=== PATIENT | female | born 1995 | race Caucasian/White ===

== ENCOUNTER 2017-08-28 08:59 | Emergency (ER) | payer OTHER ==
[~2017-08-28] VITALS: Ht 157.5 cm; Wt 56.7 kg
[~2017-08-28 08:59] MED LIST: AZIT250 PO; AZIT500 PO; Bactrim Ds Tab1 EACH PO; Benadryl 50 mg50 MG PO; CIPR500 PO; DOXY100 PO; HYDACE5325 PO; IBUP800 PO; Keflex500 MG PO; METR500 PO; NAPR500 PO; Norco 5-325 Ta1 EACH PO; OXYACE5T PO; PRED20 PO; Ultram50 MG PO; Verotin-Gr Cap1 EACH PO; Zithromax250 MG PO; Zofran Odt4 MG SL; Zofran4 MG PO
[2017-08-28] MEDS ORDERED: Veetids 500500 MG PO (10:02)
[2018-05-08] MEDS ORDERED: PENVK500 PO (18:52)
== END 2017-08-28 10:05 | disposition home or self-care (01) ==
LOC: ER 08:59
DX: K04.7 Periapical abscess without sinus (principal); K02.9 Dental caries, unspecified; Z79.2 Long term (current) use of antibiotics; F17.290 Nicotine dependence, other tobacco product, uncomplicated
CPT/HCPCS: 99282

== ENCOUNTER 2017-09-21 21:16 | Emergency (ER) | payer OTHER ==
[~2017-09-21] VITALS: Ht 154.9 cm; Wt 59.0 kg
[~2017-09-21 21:16] MED LIST changes: +Veetids 500500 MG PO
[2017-09-21] MEDS ORDERED: Veetids 500500 MG PO (22:05)
[2018-05-08] MEDS ORDERED: PENVK500 PO (18:52)
== END 2017-09-21 22:22 | disposition home or self-care (01) ==
LOC: ER 21:16
DX: K02.9 Dental caries, unspecified (principal); Z79.2 Long term (current) use of antibiotics; F17.290 Nicotine dependence, other tobacco product, uncomplicated
CPT/HCPCS: 96372; 99283; J1885

== ENCOUNTER 2018-10-31 15:33 | Emergency (ER) | payer SELFPAY ==
[~2018-10-31 15:33] MED LIST changes: +PENVK500 PO
== END 2018-10-31 18:23 | disposition left against medical advice (07) ==
LOC: ER 15:33
DX: Z53.21 Procedure and treatment not carried out due to patient leaving prior to being seen by health care provider (principal)

== ENCOUNTER 2018-11-10 10:04 | Inpatient (IN) | payer OTHER ==
[~2018-11-10] VITALS: Ht 165.1 cm; Wt 0.4 kg
[2018-11-10 11:44] LABS: Source, Urine Clean Catch
[2018-11-10 11:58] LABS: Bilirubin, Urine Neg (Neg); Blood, Urine Neg (Neg); Glucose Qualitative, Urine Neg (Neg); Ketones, Urine 2+ (Neg); Leukocyte Esterase, Urine 2+ (Neg); Nitrite, Urine Neg (Neg); Protein, Urine 1+ (Neg); Urobilinogen, Urine NORM (Normal)
[2018-11-10 12:03] LABS: Color, Urine Yellow (P-Yellow)
[2018-11-10 12:04] LABS: Appearance, Urine Clear (Clear)
[2018-11-10 12:07] LABS: Bacteria Few /hpf; Mucus Mod (0-Heavy); Red Blood Cells, Urine Rare /hpf (0-2); Squamous Epithelial Cells Mod /hpf (Few)
[2018-11-10 13:10] LABS: BASOPHILS ABSOLUTE AUTO 0.03 K/mm3 (0.00-0.23); BASOPHILS PERCENT AUTO 0 % (0-2); EOSINOPHILS ABSOLUTE AUTO 0.01 K/mm3 (0.00-0.68); EOSINOPHILS PERCENT AUTO 0 % (0-6); Hematocrit 32.6 % (33.0-51.0); Hemoglobin 10.5 g/dL (11.5-16.0); IMMATURE GRAN ABSOLUTE AUTO 0.04 K/mm3 (0.00-0.10); IMMATURE GRAN PERCENT AUTO 0 % (0-1); LYMPHOCYTES ABSOLUTE AUTO 2.41 K/mm3 (0.84-5.20); LYMPHOCYTES PERCENT AUTO 27 % (21-46); MONOCYTES ABSOLUTE AUTO 0.51 K/mm3 (0.16-1.47); MONOCYTES PERCENT AUTO 6 % (4-13); Mean Corpuscular HGB 26.1 pg (26.0-34.0); Mean Corpuscular HGB Conc 32.2 g/dL (31.5-36.5); Mean Corpuscular Volume 81 fL (80-100); Mean Platelet Volume 11.8 fL (9.1-12.4); NEUTROPHILS PERCENT AUTO 67 % (41-73); Platelet Count 230 K/mm3 (150-400); RDW Coefficient Variation 13.2 % (11.7-14.2); RDW Standard Deviation 38.7 fL (35.1-46.3); Red Blood Cell Count 4.02 M/mm3 (3.80-5.20)
[2018-11-10 17:07] LABS: U Amphetamine Screen DETECTED; U Barbituate Screen Not Detected; U Benzodiazapine Screen Not Detected; U Buprenorphine Screen Not Detected; U Cannabinoids Screen Not Detected; U Cocaine Screen Not Detected; U Methadone Screen Not Detected; U Methamphetamine Screen DETECTED; U Opiates Screen DETECTED; U Oxycodone Screen Not Detected; U Phencyclidine Screen Not Detected; U Propoxyphene Screen Not Detected
[2018-11-10] MEDS ORDERED: PRENATAL TABLE1 EAC2 PO (17:47)
--- NOTE | 2018-11-11 04:25 | NUR ---
NB TAKEN TO NURSERY WITH ARCHANA Gillis RN, TRUDY Mortensen, RN AND SAMUEL Sagastume RN AND RT JANKI TO STAIBILIZE NB. LICENSED MASS REAL ESTATE APPRAISER CALLED AND NOTIFIED OF NB'S AND STATUS
--- NOTE | 2018-11-11 04:29 | NUR ---
AFTER DELIVERY NB TAKEN TO NURSERY FOR SIGNS OF RESPIRATORY DISTRESS. MOTHER TOLD THAT NB WILL HAVE TO GO TO NURSERY AND BE ON CPAP TO ASSIST NB IN BREATHING. MOTHER OKAY WITH NB GOING. AFTER [facility] STAFF LEFT WITH , PT C/O ABD PAIN AND CRAMPING. TORADOL GIVEN TO PT. PT ALSO GIVEN SNACKS AND DRINKS. PT ATE CHIPS AND THEN ROLLED OVER IN BED AND FELL ASLEEP. PT AROUSABLE BY VOICE/TOUCH. PT TOLD THAT SHE WILL BE ABLE TO VISIT NB AFTER SHE IS UP/SHOWERED. PT NODDED THEN FELL BACK ASLEEP.
[2018-11-11 13:03] LABS: BASOPHILS ABSOLUTE AUTO 0.02 K/mm3 (0.00-0.23); BASOPHILS PERCENT AUTO 0 % (0-2); EOSINOPHILS ABSOLUTE AUTO 0.02 K/mm3 (0.00-0.68); EOSINOPHILS PERCENT AUTO 0 % (0-6); Hematocrit 27.9 % (33.0-51.0); Hemoglobin 8.9 g/dL (11.5-16.0); IMMATURE GRAN ABSOLUTE AUTO 0.04 K/mm3 (0.00-0.10); IMMATURE GRAN PERCENT AUTO 0 % (0-1); LYMPHOCYTES ABSOLUTE AUTO 2.49 K/mm3 (0.84-5.20); LYMPHOCYTES PERCENT AUTO 25 % (21-46); MONOCYTES PERCENT AUTO 5 % (4-13); Mean Corpuscular HGB 26.1 pg (26.0-34.0); Mean Corpuscular HGB Conc 31.9 g/dL (31.5-36.5); Mean Corpuscular Volume 82 fL (80-100); Mean Platelet Volume 11.6 fL (9.1-12.4); NEUTROPHILS ABSOLUTE AUTO 6.94 K/mm3 (1.96-9.15); NEUTROPHILS PERCENT AUTO 69 % (41-73); Platelet Count 207 K/mm3 (150-400); RDW Coefficient Variation 13.2 % (11.7-14.2); RDW Standard Deviation 39.4 fL (35.1-46.3); Red Blood Cell Count 3.41 M/mm3 (3.80-5.20); White Blood Cell Count 10.01 K/mm3 (4.00-11.30)
[2018-11-11 13:24] LABS: Alanine Aminotransfer (ALT/SGP 32 U/L (12-78); Albumin, Blood 1.5 g/dL (3.4-5.0); Albumin/Globulin Ratio 0.4 (0.8-1.8); Alk Phos 201 U/L (50-136); Anion Gap 7 mmol/L (6-16); Aspartate Aminotrans (AST/SGOT 31 U/L (12-37); Bilirubin, Total 0.2 mg/dL (0.1-1.0); Blood Urea Nitrogen 5 mg/dL (8-24); Bun/Creatinine Ratio 9.6 (12.0-20.0); CO2, Blood 22 mmol/L (21-32); Calcium, Blood 7.6 mg/dL (8.5-10.1); Chloride, Blood 111 mmol/L (98-108); Creatinine, Blood 0.52 mg/dL (0.40-1.00); Globulin, Blood 3.8 g/dL (2.2-4.0); Glomerular Filtration Rate >60 (60-); Glucose, Blood 79 mg/dL (70-99); Potassium, Blood 4.3 mmol/L (3.5-5.5); Sodium, Blood 140 mmol/L (136-145); Total Protein, Blood 5.3 g/dL (6.4-8.2)
--- NOTE | 2018-11-12 08:15 | NUR ---
PT IN BED, VOIDED IN SPECIMEN CUP BUT NO RN IN ROOM AT TIME. PT EDUCATED THAT RN MUST BE PRESENT. PT ASKS WHEN SHE GETS TO LEAVE, DESIRES TO DISCHARGE TO HOME SOON. PT EDUCATED ABOUT SUBOXONE AND HOW SHE WILL NEED TO DO DRUG UA FIRST AND WILL NEED A RX FOR IT. PT SEEMS WITHDRAWN. GOES OUTSIDE AFTER ASSESSMENT.
--- NOTE | 2018-11-12 08:36 | NUR ---
TO KENZIE, HOLDING
[2018-11-12 09:46] LABS: U Amphetamine Screen DETECTED; U Barbituate Screen Not Detected; U Benzodiazapine Screen Not Detected; U Cannabinoids Screen Not Detected; U Cocaine Screen Not Detected; U Methadone Screen Not Detected; U Methamphetamine Screen DETECTED; U Opiates Screen DETECTED; U Phencyclidine Screen Not Detected
[2018-11-12 09:47] LABS: U Buprenorphine Screen DETECTED; U Oxycodone Screen Not Detected; U Propoxyphene Screen Not Detected
--- NOTE | 2018-11-12 10:50 | NUR ---
PT CALLED RN INTO ROOM, STATES I WANT TO LEAVE NOW, WHAT DO I NEED TO SIGN? PT ENCOURAGED TO STAY UNTIL PROVIDER COMES TO ASSESS AND GIVE DISCHARGE ORDERS. PT STATES SHE DOES NOT WANT THIS AND IS GOING TO LEAVE. PT EDUCATED ABOUT DISCHARGE INSTRUCTIONS AND PAPER COPY GIVEN
--- NOTE | 2018-11-12 11:05 | NUR ---
AMA FORM SIGNED. PT STATES SHE UNDERSTANDS WHAT SHE IS SIGNING AND WHAT IT MEANS.
--- NOTE | 2018-11-12 11:10 | NUR ---
PT DISCHARGED AMA
--- NOTE | 2018-11-12 11:15 | NUR ---
LEFT AMA, RN EDUCATED PT MUCH THE PT WOULD ALLOW.
--- NOTE | 2018-11-12 11:16 | NUR ---
NO POST APPOINTMENT MADE, PT WOULD NOT BOOK BEFORE LEAVING AMA. HARSHAL NOT ABLE TO GET DONE WELL.
== END 2018-11-12 11:07 | disposition left against medical advice (07) | DRG 806 ==
LOC: OBS 10:04 → BC 10:04 → OBS 16:28 → BC 16:41
PROVIDERS: ADMIT Nurse Practitioner Obstetrics & Gynecology
PROC: 10E0XZZ Delivery of Products of Conception, External Approach (ICD-10-PCS; principal; 2018-11-11)
PROC: 6A550ZT Pheresis of Cord Blood Stem Cells, Single (ICD-10-PCS; 2018-11-11)
PROC: 00HU33Z Insertion of Infusion Device into Spinal Canal, Percutaneous Approach (ICD-10-PCS; 2018-11-11)
PROC: 3E0R3BZ Introduction of Anesthetic Agent into Spinal Canal, Percutaneous Approach (ICD-10-PCS; 2018-11-11)
DX: O60.14X0 Preterm labor third trimester with preterm delivery third trimester, not applicable or unspecified (principal); O99.324 Drug use complicating childbirth; Z37.0 Single live birth; O99.013 Anemia complicating pregnancy, third trimester; O99.343 Other mental disorders complicating pregnancy, third trimester; F43.10 Post-traumatic stress disorder, unspecified; F41.1 Generalized anxiety disorder; O99.333 Smoking (tobacco) complicating pregnancy, third trimester; Z3A.35 35 weeks gestation of pregnancy
CPT/HCPCS: 36415; 51702; 59025; 80053; 81001; 85025; 87081; 87086; 87653; 96372; 99215; C1751; C9113; J0290; J1885; J2210; J2590; J3105; J7120

== ENCOUNTER 2022-01-22 01:44 | Emergency (ER) | payer SELFPAY ==
[~2022-01-22] VITALS: Ht 157.5 cm; Wt 54.4 kg
[~2022-01-22 01:44] MED LIST changes: +PRENATAL TABLE1 EAC2 PO
[2022-01-22] MEDS ORDERED: DOXY100 PO (04:51)
[2022-01-22] MEDS ORDERED: METR500 PO (04:52)
[2022-01-24 02:08] LABS: CHLAMYDIA TRACHOMATIS, NAA Negative (Negative)
== END 2022-01-22 05:32 | disposition home or self-care (01) ==
LOC: ER 01:44
PROVIDERS: Student in an Organized Health Care Education/Training Program
DX: Z20.2 Contact with and (suspected) exposure to infections with a predominantly sexual mode of transmission (principal); Z79.899 Other long term (current) drug therapy; F17.210 Nicotine dependence, cigarettes, uncomplicated
CPT/HCPCS: 81025; 86592; 96372; 99283-25; A9270; J0696

== ENCOUNTER 2023-01-02 13:11 | Emergency (ER) | payer OTHER ==
[~2023-01-02] VITALS: Ht 157.5 cm; Wt 56.7 kg
[2023-01-02 13:17] VITALS: BP 129/73
[2023-01-02] MEDS ORDERED: SULTRIDS PO (14:26)
[2023-01-02] MEDS ORDERED: CEPH500 PO (14:26)
== END 2023-01-02 15:01 | disposition home or self-care (01) ==
LOC: ER 13:11
DX: L03.116 Cellulitis of left lower limb (principal); F17.210 Nicotine dependence, cigarettes, uncomplicated
CPT/HCPCS: 87070; 87075; 87077; 87147; 87186; 87205; 99283

== ENCOUNTER 2023-01-31 01:00 | Emergency (ER) | payer OTHER ==
[~2023-01-31] VITALS: Ht 157.5 cm; Wt 59.0 kg
[~2023-01-31 01:00] MED LIST changes: +CEPH500 PO; +SULTRIDS PO
[2023-01-31 01:22] VITALS: BP 127/74
[2023-01-31 01:31] LABS: Source, Urine Clean Catch
[2023-01-31 01:38] LABS: Bilirubin, Urine Neg (Neg); Blood, Urine Neg (Neg); Glucose Qualitative, Urine Neg (Neg); Ketones, Urine 1+ (Neg); Leukocyte Esterase, Urine 1+ (Neg); Nitrite, Urine Pos (Neg); Protein, Urine 1+ (Neg); Urobilinogen, Urine 1+ (Normal)
[2023-01-31 01:42] LABS: Appearance, Urine Hazy (Clear); Color, Urine Yellow (P-Yellow)
[2023-01-31 01:45] LABS: Amorphous Light (0-Heavy); Bacteria Mod /hpf; Mucus Mod (0-Heavy); Red Blood Cells, Urine Not Seen /hpf (0-2); Squamous Epithelial Cells Few /hpf (Few)
[2023-01-31 02:38] LABS: BASOPHILS ABSOLUTE AUTO 0.05 K/mm3 (0.00-0.23); BASOPHILS PERCENT AUTO 1 % (0-2); EOSINOPHILS ABSOLUTE AUTO 0.19 K/mm3 (0.00-0.68); EOSINOPHILS PERCENT AUTO 4 % (0-6); Hematocrit 37.5 % (33.0-51.0); Hemoglobin 12.4 g/dL (11.5-16.0); IMMATURE GRAN ABSOLUTE AUTO 0.02 K/mm3 (0.00-0.10); IMMATURE GRAN PERCENT AUTO 0 % (0-1); LYMPHOCYTES ABSOLUTE AUTO 2.14 K/mm3 (0.84-5.20); LYMPHOCYTES PERCENT AUTO 44 % (21-46); MONOCYTES ABSOLUTE AUTO 0.39 K/mm3 (0.16-1.47); MONOCYTES PERCENT AUTO 8 % (4-13); Mean Corpuscular HGB 27.6 pg (26.0-34.0); Mean Corpuscular HGB Conc 33.1 g/dL (31.5-36.5); Mean Corpuscular Volume 84 fL (80-100); NEUTROPHILS ABSOLUTE AUTO 2.06 K/mm3 (1.96-9.15); NEUTROPHILS PERCENT AUTO 43 % (41-73); RDW Coefficient Variation 12.8 % (11.7-14.2); RDW Standard Deviation 38.6 fL (35.1-46.3); Red Blood Cell Count 4.49 M/mm3 (3.80-5.20); White Blood Cell Count 4.85 K/mm3 (4.00-11.30)
[2023-01-31 02:48] LABS: Bilirubin, Total 0.2 mg/dL (0.1-1.0); Bun/Creatinine Ratio 12.9 (12.0-20.0); Calcium, Blood 8.9 mg/dL (8.5-10.1); Creatinine, Blood 0.77 mg/dL (0.40-1.00); Globulin, Blood 4.1 g/dL (2.2-4.0); Potassium, Blood 4.1 mmol/L (3.5-5.5)
[2023-01-31 03:16] LABS: Albumin, Blood 3.9 g/dL (3.4-5.0)
== END 2023-01-31 03:05 | disposition left against medical advice (07) ==
LOC: ER 01:00
PROVIDERS: Emergency Medicine
DX: N39.0 Urinary tract infection, site not specified (principal); F17.210 Nicotine dependence, cigarettes, uncomplicated
CPT/HCPCS: 80053; 81001; 81025; 85025; J0696; J1885; J2405; J7030

== ENCOUNTER 2023-01-31 15:23 | Emergency (ER) | payer OTHER ==
[~2023-01-31] VITALS: Ht 157.5 cm; Wt 59.0 kg
[2023-01-31 16:01] VITALS: BP 138/94
== END 2023-01-31 17:27 | disposition left against medical advice (07) ==
LOC: ER 15:23
DX: N39.0 Urinary tract infection, site not specified (principal); F15.90 Other stimulant use, unspecified, uncomplicated; F17.210 Nicotine dependence, cigarettes, uncomplicated; Z53.21 Procedure and treatment not carried out due to patient leaving prior to being seen by health care provider
CPT/HCPCS: 99284; J0696

== ENCOUNTER → 2024-08-07 | Outpatient (CLI) | payer OTHER | LOC: LAB SHORT 17:42 → LAB 17:42 | DX: R82.998 Other abnormal findings in urine (principal) | CPT/HCPCS: 87077; 87086; 87186 ==

== ENCOUNTER 2024-08-08 10:58 | Inpatient (IN) | payer OTHER ==
[~2024-08-08] VITALS: Ht 157.5 cm; Wt 66.0 kg
[2024-08-08 11:59] LABS: Source, Urine Clean Catch
[2024-08-08 12:26] LABS: Appearance, Urine Hazy (Clear); Bilirubin, Urine Neg (Neg); Blood, Urine 1+ (Neg); Color, Urine Yellow (P-Yellow); Glucose Qualitative, Urine Neg (Neg); Ketones, Urine Neg (Neg); Leukocyte Esterase, Urine 3+ (Neg); Nitrite, Urine Pos (Neg); Protein, Urine 2+ (Neg); Specific Gravity, Urine 1.015 (1.003-1.022); Urobilinogen, Urine 2+ (Normal)
[2024-08-08 12:50] LABS: BASOPHILS ABSOLUTE AUTO 0.05 K/mm3 (0.00-0.23); BASOPHILS PERCENT AUTO 0 % (0-2); Hematocrit 31.3 % (33.0-51.0); Hemoglobin 10.7 g/dL (11.5-16.0); LYMPHOCYTES ABSOLUTE AUTO 1.18 K/mm3 (0.84-5.20); LYMPHOCYTES PERCENT AUTO 9 % (21-46); MONOCYTES ABSOLUTE AUTO 1.11 K/mm3 (0.16-1.47); MONOCYTES PERCENT AUTO 8 % (4-13); Mean Corpuscular HGB 28.1 pg (26.0-34.0); Mean Corpuscular HGB Conc 34.2 g/dL (31.5-36.5); Mean Corpuscular Volume 82 fL (80-100); Mean Platelet Volume 10.6 fL (9.1-12.4); Platelet Count 158 K/mm3 (150-400); RDW Coefficient Variation 12.6 % (11.7-14.2); RDW Standard Deviation 38.2 fL (35.1-46.3); Red Blood Cell Count 3.81 M/mm3 (3.80-5.20); White Blood Cell Count 13.42 K/mm3 (4.00-11.30)
[2024-08-08 12:51] LABS: EOSINOPHILS ABSOLUTE AUTO 0.06 K/mm3 (0.00-0.68); EOSINOPHILS PERCENT AUTO 0 % (0-6); IMMATURE GRAN ABSOLUTE AUTO 0.12 K/mm3 (0.00-0.10); IMMATURE GRAN PERCENT AUTO 1 % (0-1); NEUTROPHILS PERCENT AUTO 81 % (41-73)
[2024-08-08 13:04] LABS: Bacteria Mod /hpf; Squamous Epithelial Cells Many /hpf (Few); White Blood Cells, Urine TNTC /hpf (0-5)
[2024-08-08 13:16] LABS: Albumin, Blood 2.7 g/dL (3.4-5.0); Albumin/Globulin Ratio 0.6 (0.8-1.8); Bilirubin, Total 0.4 mg/dL (0.1-1.0); Bun/Creatinine Ratio 16.7 (12.0-20.0); Calcium, Blood 9.1 mg/dL (8.5-10.1); Creatinine, Blood 1.44 mg/dL (0.40-1.00); Globulin, Blood 4.4 g/dL (2.2-4.0); Potassium, Blood 2.8 mmol/L (3.5-5.5); Total Protein, Blood 7.1 g/dL (6.4-8.2)
[2024-08-08] MEDS ORDERED: NS 1,000 ML IV SCH ×2 (14:30→18:25)
[2024-08-08] MEDS ORDERED: CefTRIAXone Sodium 1,000 MG in NS 100 ML IV ONE (14:30)
[2024-08-08] MEDS ORDERED: Acetaminophen 325 MG TABLET PO ONE (14:35)
[2024-08-08] MEDS ORDERED: Ondansetron HCl 2 MG / ML 2ML Vial IV ONE (14:35)
[2024-08-08] MEDS ORDERED: OxyCODONE HCL 5 MG TAB PO ONE (14:35)
[2024-08-08] MEDS ORDERED: Potassium Chloride 20 MEQ/15 ML UDC PO ONE (14:45)
[2024-08-08] MEDS ORDERED: Ondansetron HCl 2 MG / ML 2ML Vial IV PRN (18:25)
[2024-08-08] MEDS ORDERED: FLU VACC TS2024-25(6MOS UP)/PF 45 MCG/0.5 ML SYRINGE IM SCH (18:25)
[2024-08-08] MEDS ORDERED: Vancomycin HCL 1,500 MG in NS 250 ML IV ONE (18:55)
[2024-08-08] MEDS ORDERED: HYDROcodone 10-APAP 325 TAB PO PRN (19:00)
[2024-08-08 19:37] LABS: Source, Urine Clean Catch
[2024-08-08 19:40] LABS: Appearance, Urine Cloudy (Clear); Bilirubin, Urine Neg (Neg); Blood, Urine 2+ (Neg); Color, Urine Yellow (P-Yellow); Glucose Qualitative, Urine Neg (Neg); Ketones, Urine Neg (Neg); Leukocyte Esterase, Urine 3+ (Neg); Nitrite, Urine Pos (Neg); Protein, Urine 2+ (Neg); Specific Gravity, Urine 1.015 (1.003-1.022); Urobilinogen, Urine 1+ (Normal)
[2024-08-08 19:52] LABS: Bacteria Many /hpf; Squamous Epithelial Cells Few /hpf (Few); White Blood Cells, Urine TNTC /hpf (0-5)
[2024-08-08] MEDS ORDERED: Lactobacil 2-S.Thermo-Bifido 1 1 Cap PO SCH (21:00)
[2024-08-08 21:10] VITALS: BP 101/62
[2024-08-09 02:00] VITALS: BP 110/75
[2024-08-09] MEDS ORDERED: Calcium Carbonate 500 MG Tab Chew PO PRN (03:05)
--- NOTE | 2024-08-09 05:42 | NUR ---
LEAVING AMA PT CALLED THIS RN INTO ROOM, PT CRYING, SAYING SHE WAS THINKING ABOUT LEAVING AGAINST MEDICAL ADVICE. SHE SMOKES FENTANYL AND COULDNT STAND THE WITHDRAWLS. SHE ALSO HAS FLANK PAIN. WE DISCUSSED SEPSIS AND UTIS AND WHY LEAVING WOULD BE A BAD IDEA. I OFFERED HER A NORCO FOR HER FLANK PAIN INSTEAD OF LEAVING THE HOSPITAL, WHICH SHE ACCEPTED AND AGREED TO STAY HERE. A FEW MINUTES AFTER TAKING IT, SHE CALLED ME BACK INTO THE ROOM, CRYING, SAYING SHE WAS SORRY, BUT THAT SHE REALLY NEEDS TO LEAVE "NOW". PT WAS COMPLETELY ORIENTED X4. I OFFERED TO CALL THE DOCTOR FOR HER TO SEE IF WE COULD COME UP WITH A PLAN TO GET HER MORE COMFORTABLE, I OFFERED TO CALL FAMILY OR FRIENDS FOR HER. WE DISCUSSED RISK OF SEPSIS, ORGAN FAILURE OR INJURY, AND SHE IS STILL ADAMENT THAT SHE NEEDS TO LEAVE. I ASKED HER TO PLEASE WAIT SO I CAN AT LEAST GET A PRESCRIPTION FOR ORAL ANTIBIOTICS FROM THE DOCTOR BEFORE SHE GOES AND SHE REFUSED. SHE SAID SHE WAS GOING TO LEAVE IMMEDIATELY BUT SAID SHE WOULD GO TO THE URGENT CARE LATER TO GET A PRESCRIPTION FOR ORAL ANTIBIOTICS. I REMOVED BOTH IVS AND HER TELEMETRY AND SHE SIGNED THE AMA PAPERWORK AND LEFT THE HOSPITAL WITH HER BOYFRIEND. I URGED HER TO MAKE SURE SOMEONE IS MONITORING HER AT HOME AND THAT THEY SHOULD CALL 911 IF SHE BEOMES CONFUSED OR LETHARGIC, DIZZY, EXPERIENCES CHEST PAIN OR SHORTNESS OF BREATH, OR CANT KEEP DOWN FLUIDS. SHE AGREED. NOTIFIED DR. LOBO VIA TELEPHONE BEFORE PT LEFT. HE SAID HE COULD GET HER A PRESCRIPTION FOR ORAL ANTIBIOTICS NOW BUT PT REFUSED TO WAIT A MINUTE FOR THIS TO HAPPEN AND LEFT THE HOSPITAL.
[2024-08-09] MEDS ORDERED: Vancomycin HCL 750 MG in NS 250 ML IV SCH (07:00)
[2024-08-09] MEDS ORDERED: Nicotine 14 MG PATCH TOP SCH (09:00)
[2024-08-09] MEDS ORDERED: CefTRIAXone Sodium 1,000 MG in NS 100 ML IV SCH (18:00)
== END 2024-08-09 05:03 | disposition left against medical advice (07) | DRG 872 ==
LOC: ER 10:58 → ERHOLD 18:21 → MEDS 21:00
PROVIDERS: Physician Assistant; ADMIT Internal Medicine
DX: A41.9 Sepsis, unspecified organism (principal); N17.9 Acute kidney failure, unspecified; E87.1 Hypo-osmolality and hyponatremia; N12 Tubulo-interstitial nephritis, not specified as acute or chronic; M54.9 Dorsalgia, unspecified; F41.9 Anxiety disorder, unspecified; F43.10 Post-traumatic stress disorder, unspecified; F11.10 Opioid abuse, uncomplicated; F15.10 Other stimulant abuse, uncomplicated; R65.20 Severe sepsis without septic shock; E87.6 Hypokalemia; Z53.29 Procedure and treatment not carried out because of patient's decision for other reasons; Z88.0 Allergy status to penicillin; F17.210 Nicotine dependence, cigarettes, uncomplicated; Z79.899 Other long term (current) drug therapy; Z71.51 Drug abuse counseling and surveillance of drug abuser
CPT/HCPCS: 80053; 81001; 83605; 84703; 85025; 87077; 87086; 87186; 96361; 96365; 96375; 99284-25; A9270; C1751; J0696; J2405; J3370; J7030; J7050